=== PATIENT | male | born 1965 | race Caucasian/White ===

== ENCOUNTER 2019-07-22 19:00 | Observation (INO) ==
[2019-07-22] MEDS ORDERED: NS 1,000 ML IV PRN (19:46)
[2019-07-22 19:54] LABS: EOS% 1.4 % (0.0-10.0); HEMOGLOBIN 15.7 g/dL (14.0-18.0); LYMPH% 15.5 % (20.5-51.1); MCH 32.4 PG (27-31); MCHC 36.5 g/dL (33-37); MCV 88.8 FL (81-99); MONO% 6.4 % (1.7-9.3); MPV 10.1 FL (7.4-10.4); NEUT% 76.3 % (42.2-75.2); PLT 124 X1000 (130-400); RBC 4.84 XMIL (4.7-6.1); WBC 8.02 X1000 (4.8-10.8)
[2019-07-22 19:55] LABS: BASO# 0.02 X1000 (0.0-0.2); BASO% 0.2 % (0.0-0.8); EOS# 0.11 X1000 (0.0-0.7); IMM GRAN# 0.02 X1000 (0.0-0.04); IMM GRAN% 0.2 % (0.0-0.5); LYMPH# 1.24 X1000 (1.2-3.4); MONO# 0.51 X1000 (0.11-0.59); NEUT# 6.12 X1000 (1.4-6.5)
[2019-07-22 20:29] LABS: INR 0.95; PROTIME 13.2 Seconds (11.0-16.0)
[2019-07-22 20:30] LABS: PTT 24.9 Seconds (22.3-41.8)
[2019-07-22 20:42] LABS: AGAP 10; ALBUMIN 4.5 g/dL (3.5-5.0); ALKALINE PHOSPHATASE 49 U/L (32-122); BUN 18 mg/dL (8-22); CALCIUM 8.8 mg/dL (8.8-10.2); CHLORIDE 101 mmol/L (98-107); COSMO 281; CREATININE 1.1 mg/dL (0.7-1.2); ESTIMATED GFR > 60; GLUCOSE 120 mg/dL (70-104); GOT 31 U/L (10-34); GPT 37 U/L (10-44); POTASSIUM 4.4 mmol/L (3.5-5.1); SODIUM 139 mmol/L (136-145); TCO2 28 mmol/L (25-35); TOTAL PROTEIN 6.8 g/dL (6.3-8.3)
[2019-07-22 21:16] LABS: BILIRUBIN URINE NEGATIVE (NEGATIVE); BLOOD URINE NEGATIVE (NEGATIVE); GLUCOSE URINE NEGATIVE (NEGATIVE); KETONE URINE TRACE mg/dL (NEGATIVE); NITRITE URINE NEGATIVE (NEGATIVE); PH URINE 6.5; PROTEIN URINE TRACE mg/dL (NEGATIVE); SP GRAVITY URINE 1.015; UROBILINOGEN URINE NORMAL
[2019-07-22 21:17] LABS: CLARITY CLEAR (CLEAR); COLOR YELLOW; LEUKOCYTES URINE TRACE (NEGATIVE)
[2019-07-22 21:24] LABS: URINE BACTERIA 1+ /HFP; URINE CAST NONE SEEN /LPF; URINE CRYSTAL NONE SEEN /HPF; URINE EPITHELIAL CELLS <10 /HPF (<10); URINE RBC <10 /HPF (<10); URINE SOURCE CLEAN CATCH; URINE WBC <10 /HPF (<10); URINE YEAST NONE SEEN /HPF
[2019-07-22 21:26] LABS: UR AMPHETAMINES QUAL NONE DETECTED (NONE DETECT); UR BARBITUATES QUAL NONE DETECTED (NONE DETECT); UR BENZODIAZEPIN QUAL PRESUMPTIVE POSITIVE (NONE DETECT); UR CANNABINOIDS QUAL NONE DETECTED (NONE DETECT); UR COCAINE QUAL NONE DETECTED (NONE DETECT); UR METHADONE QUAL NONE DETECTED (NONE DETECT); UR METHAMPHETAMINE QUAL NONE DETECTED (NONE DETECT); UR OPIATES QUAL NONE DETECTED (NONE DETECT); UR OXYCODONE QUAL NONE DETECTED (NONE DETECT); UR PCP QUAL NONE DETECTED (NONE DETECT); UR PROPOXYPHENE QUAL NONE DETECTED (NONE DETECT); UR TCA QUAL NONE DETECTED (NONE DETECT)
--- NOTE | 2019-07-22 21:26 | Diag Imaging Result Doc PS360 ---
EXAM: CHEST-PORTABLE INDICATION: dizziness TECHNIQUE: One view COMPARISON: 01/10/2018 FINDINGS: Inspiration is suboptimal. The lungs are grossly clear. There is no discrete pleural fluid collection or pneumothorax. The cardiomediastinal silhouette and central vasculature are grossly unremarkable. IMPRESSION: Low lung volumes but no definite acute chest pathology, otherwise. Electronically signed by Juan Dan 07/22/2019 9:24 PM
--- NOTE | 2019-07-22 21:57 | Diag Imaging Result Doc PS360 ---
EXAM: CT HEAD W/O CONTRAST INDICATION: left side numb and dizziness TECHNIQUE: This exam was performed using automated exposure control, adjustment of mA or kV according to patient size, and/or use of iterative reconstruction technique. COMPARISON: 01/10/2018 FINDINGS: There is no definite acute infarct given the limited sensitivity of CT versus MRI. There is no discrete intracranial mass, mass effect, or intracranial hemorrhage. The surrounding soft tissues and bony structures are essentially unremarkable. IMPRESSION: No evidence of acute intracranial pathology. Electronically signed by Juan Dan 07/22/2019 9:54 PM
--- NOTE | 2019-07-22 22:51 | PROVIDER DOCUMENTATION ---
This chart was entered by Jason Rob Scribe, acting as scribe for Margarita Barnes MD. HPI-General Adult - General Chief Complaint: Nausea/Vomiting Stated Complaint: DIZZY, PASSED OUT, VOMITING Time Seen by Provider: 07/22/19 19:33 Source: patient, family Allergies/Adverse Reactions: Patient Allergies Allergy/AdvReac Type Severity Reaction Status Date / Time No Known Allergies Allergy Verified 07/26/16 22:32 Home Medications: Home Medication List Medication Instructions Recorded Confirmed Last Taken Type Acetaminophen with Codeine 1 ea PO Q4H PRN PRN #12 tab 04/17/18 Unknown Rx [Tylenol with Codeine #3] Ibuprofen [Motrin] 800 mg PO Q8H PRN PRN #20 tab 04/17/18 Unknown Rx Omeprazole [Prilosec] 20 mg PO DAILY@0700 #20 cap 04/17/18 Unknown Rx Penicillin V Potassium 500 mg PO BID #20 tab 04/17/18 Unknown Rx - History of Present Illness -Gen Adult Nature of Presenting Problems: 53 yowm presents to the ed with c/o chest pains LUE sharp pain and numbness. pt c/o N/V, dizziness and loss of balance , loss of balance started yesterday. pt states after n/v the chest pains started ,also states pain is a 10 when pain starts. pt states when sitting up pt becomes dizzy. pt c/o slight headache. pt states on exam pt is improving. Pt states hx of DM and blood pressure problems. Location of Pain/Injury: reports: neck (left), chest, upper extremity (Left arm) Pain Radiation: reports: no radiation Quality of Pain: reports: sharp Severity: reports: mild Onset/Duration: reports: this morning Timing: reports: still present, improving Context/Activities at Onset: reports: light activity Modifying Factors: improves with: nothing Associated Symptoms: reports: arm pain (left), back/neck pain (left side of neck), chest pain, dizziness, headaches (slight), nausea, vomiting. denies: cough, fever/chills, shortness of breath, syncope Similar Symptoms Previously?: No Recently seen or treated by another doctor?: No Review of Systems - Adult - REVIEW OF SYSTEMS - ADULT Constitutional: reports: no symptoms reported Eyes: reports: no symptoms reported Ears, Nose, Mouth & Throat: reports: no symptoms reported Cardiovascular: reports: see HPI, chest pain. denies: palpitations, syncope Respiratory: denies: shortness of breath, wheezing Gastrointestinal: reports: nausea, vomiting. denies: abdominal pain, diarrhea Genitourinary: reports: no symptoms reported Musculoskeletal: reports: see HPI, neck pain. denies: back pain, joint swelling Integumentary: reports: no symptoms reported Neurological: reports: see HPI, dizziness/vertigo, headache/migraines (slight), loss of balance, numbness (left arm). denies: seizure, slurred speech, syncope Psychiatric: reports: no symptoms reported Endocrine: reports: no symptoms reported Hematologic/Lymphatic: reports: no symptoms reported Allergic/Immunologic: reports: no symptoms reported All Other Systems: Reviewed and Negative Past History - Adult - PAST MEDICAL HISTORY-ADULT Review of Records: reports: Old Records Reviewed, Nursing Assessment Review, Medications Reviewed, Social history reviewed & non-contributory. Major Childhood Illnesses: reports: denies history Cardiovascular: reports: denies history Respiratory: reports: denies history Gastrointestinal: reports: denies history Obstetrical/Gynecological: reports: denies history Genitourinary: reports: denies history Musculoskeletal: reports: denies history Neurological: reports: denies history Endocrine/Immune: reports: denies history, Diabetes Other Conditions: reports: denies history - PRIOR SURGERIES/PROCEDURES Surgical/Procedure History: reports: reviewed, not pertinent - IMMUNIZATION STATUS Childhood Immunizations: See Nurse Assessment Flu Vaccine: See Nurse Assessment - FAMILY HISTORY Family History: reviewed, not pertinent - SOCIAL HISTORY Smoking: denies Substance Use: denies Living Situation: family Physical Exam-General - PHYSICAL EXAM-ADULT Initial Vital Signs Reviewed: Yes - CONSTITUTIONAL General Appearance: appears well, alert, mild distress. negative: lethargic, slow to respond - EYES Eyes: PERRL/EOMI, pink conjunctivae - HEAD, EARS, NOSE, MOUTH & THROAT HENMT: moist mucous membranes - CARDIOVASCULAR Cardiovascular: bradycardia - SKIN Integumentary: normal color, warm/dry - NEUROLOGIC Neurologic: grossly normal - PSYCHIATRIC Psych/Mental Status: normal mood/affect, normal thought content, normal thought process, oriented x 3 Progress - PLAN OF CARE/RESULTS Progress/Plan/Lab Results: Vital Signs - 8 hr 07/22/19 19:51 Temperature 97.8 F Pulse Rate 50 L Respiratory Rate 22 Blood Pressure 109/69 O2 Sat by Pulse Oximetry 96 Laboratory Results - last 24 hr 07/22/19 19:44 WBC 8.02 RBC 4.84 Hgb 15.7 Hct 43.0 MCV 88.8 MCH 32.4 H MCHC 36.5 RDW Std Deviation 12.0 Plt Count 124 L MPV 10.1 Immature Gran % (Auto) 0.2 Neut % (Auto) 76.3 H Lymph % (Auto) 15.5 L Stanly % (Auto) 6.4 Eos % (Auto) 1.4 Baso % (Auto) 0.2 Immature Gran # (Auto) 0.02 Neut # (Auto) 6.12 Lymph # (Auto) 1.24 Stanly # (Auto) 0.51 Eos # (Auto) 0.11 Baso # (Auto) 0.02 Orders Category Date Time Status Cardiac Monitoring DIRECTED Care 07/22/19 19:47 Active Finger Stick Blood Sugar (ED) DIRECTED Care 07/22/19 19:47 Active Misc. NRSG Communication Order DIRECTED Care 07/22/19 19:47 Active Saline Loc NOW Care 07/22/19 19:47 Active CHEST-PORTABLE [RAD] Stat Exams 07/22/19 19:47 Ordered CBC WITH ELECTRONIC DIFF [HEME] Stat Lab 07/22/19 19:44 Completed COMPREHENSIVE METABOLIC PANEL [CHEM] Stat Lab 07/22/19 19:47 Uncollected PROTIME WITH INR [COAG] Stat Lab 07/22/19 19:47 Uncollected PTT [COAG] Stat Lab 07/22/19 19:47 Uncollected TROPONIN T Stat Lab 07/22/19 19:[address] W/POSS RFLX CULT [URINALYSIS] Stat Lab 07/22/19 19:46 Uncollected URINE DRUG SCREEN PL Stat Lab 07/22/19 19:47 Uncollected 0.9% Sodium Chloride Inj [Ns] 1,000 ml Med 07/22/19 19:46 Active IV 999 mls/hr Result Diagrams: 07/22/19 19:44 07/22/19 19:44 - REASSESSMENT Reassessment #1 Time Reassessed: 22:36 (pt resting in bed with family in room ) Status: improving - EKG 1 Time of EKG reading by physician:: 19:36 EKG Read and Signed by:: Margarita Barnes EKG Interpretation (*Must complete 3 of following elements*): Abnormal Rate: 47 Rhythm: Sinus bradycardia Hyrum: normal QRS: normal CT Interval: normal ST Wave: normal Comments: cannot rule out Anterior infract, age undeterminded - XRAY 1 XRAY Study: Chest Impression: See EMR Report (EXAM: CHEST-PORTABLE INDICATION: dizziness TECHNIQUE: One view COMPARISON: 01/10/2018 FINDINGS: Inspiration is suboptimal. The lungs are grossly clear. There is no discrete pleural fluid collection or pneumothorax. The cardiomediastinal silhouette and central vasculature are grossly unremarkable. IMPRESSION: Low lung volumes but no definite acute chest pathology, otherwise. Electronically signed by Juan Dan 07/22/2019 9:24 PM 07/22/192123 Interpreting Physician: Juan Dan MD Dictated Date/Time: 07/22/192123 cc: Margarita Barnes MD; Darinel Infante) - CT/MRI 1 CT Study: Head Impression: See EMR Report (EXAM: CT HEAD W/O CONTRAST INDICATION: left side numb and dizziness TECHNIQUE: This exam was performed using automated exposure control, adjustment of mA or kV according to patient size, and/or use of iterative reconstruction technique. COMPARISON: 01/10/2018 FINDINGS: There is no definite acute infarct given the limited sensitivity of CT versus MRI. There is no discrete intracranial mass, mass effect, or intracranial hemorrhage. The surrounding soft tissues and bony structures are essentially unremarkable. IMPRESSION: No evidence of acute intracranial pathology. Electronically si gned by Juan Dan 07/22/2019 9:54 PM 07/22/192153 Interpreting Physician: Juan Dan MD Dictated Date/Time: 07/22/192153 cc: Margarita Barnes MD; Darinel Infante) - CONSULTS/PCP/HOSPITALIST Notification #1 *Consult/PCP/Hospitalist*: Phone call with hospitalists Time Discussed: 22:42 Consult Disposition: Admit Departure - Departure Date of Disposition Decision: 07/22/19 Time of Disposition Decision: 22:51 DIAGNOSIS: Syncope, Chest pain Disposition: ADMITTED INPATIENT 09 Certified Medical Emergency: Emergent Condition: Good Referrals and Follow-Ups: Darinel Infante [Primary Care Provider] - - Critical Care Note This patient required my direct & personal management of CC.: No Attestation - Physician/ UCHE Attestation Patient care was provided by Advanced Practice Provider:: No The physician spent face to face time with patient:: Yes Advanced Practice Provider documentation review:: Supervising physician onsite and consulted in the evaluation and care of this patient. The physician did have a face to face encounter with the patient. This chart was documented by the indicated scribe, (Jason Rob, Juan Jose) and accurately reflects the services I performed and decisions made by me, Chanell Barnes MD, as attested by the provider's signature.
[2019-07-22] MEDS ORDERED: MORPHINE IV PRN (22:52)
[2019-07-22] MEDS ORDERED: NS 1,000 ML IV ONE (22:52)
[2019-07-22] MEDS ORDERED: ZOFRAN IV PRN (22:52)
[2019-07-23] MEDS ORDERED: NS 1,000 ML IV SCH ×2 (00:15→16:30)
[2019-07-23] MEDS: ZOFRAN IV PRN ×2 (00:51→14:27)
[2019-07-23] MEDS ORDERED: PNEUMOVAX 23 IM ONE (01:13)
[2019-07-23] MEDS: MORPHINE IV PRN ×3 (04:16→14:27)
[2019-07-23] MEDS ORDERED: ANTIVERT PO PRN (08:38)
--- NOTE | 2019-07-23 10:09 | Extremity Venous Study ---
EXAM: Carotid Ultrasound - 07/23/2019 HISTORY: vertigo TECHNIQUE: Carotid flow studies COMPARISON: None. FINDINGS: There is no substantial atherosclerotic plaquing identified in the right carotid system. Maximum systolic velocity in the right internal carotid is 77 cm/s, and maximum diastolic velocity is 30 cm/s. The right internal to common carotid systolic velocity ratio is 0.68. The flow velocities and ratio are consistent with 0-39% stenosis at the right internal carotid. The right vertebral demonstrates antegrade flow. There is no substantial atherosclerotic plaquing identified in the left carotid system. Maximum systolic velocity in the left internal carotid is 46 cm/s, and maximum diastolic velocity is 23 cm/s. The left internal to common carotid systolic velocity ratio is 0.50. The flow velocities and ratio are consistent with 0-39% stenosis at the left internal carotid. The left vertebral demonstrates antegrade flow. There is an apparent 1.6 cm solid nodule, with blood flow signal on Doppler image, noted the right thyroid lobe. IMPRESSION: 0-39% stenosis at right internal carotid. 0-39% stenosis at left internal carotid. Apparent 1.6 cm solid nodule noted at right thyroid. Correlation with dedicated thyroid ultrasound is recommended. Electronically signed by Amador El 07/23/2019 10:07 AM
--- NOTE | 2019-07-23 11:25 | Diag Imaging Result Doc PS360 ---
EXAM: MRI BRAIN W/WO CONTRAST - 07/23/2019 HISTORY: vertigo/eval acoustic nerve TECHNIQUE: MRI brain without and with contrast. Images are obtained prior to and following gadolinium administration. In addition to the standard images, focal images of the internal auditory canals are obtained. COMPARISON: 07/22/2019 CT head without contrast FINDINGS: There is no evidence of intracranial hemorrhage, mass effect, midline shift, or hydrocephalus. The diffusion weighted images show no areas of restricted diffusion (no evidence of acute infarct). There are no substantial signal abnormalities identified. There is no abnormal enhancement identified. There is no evidence of mass or abnormal enhancement in the internal auditory canal regions. There is mild cerebellar tonsillar ectopia which is likely within the range of normal variation. IMPRESSION: No visible substantial abnormality. No evidence of infarct. No evidence of acoustic neuroma. Electronically signed by Amador El 07/23/2019 11:23 AM
[2019-07-23 16:39] VITALS: BP 120/69
[2019-07-23] MEDS ORDERED: HUMALOG (PARKWAY) SUBQ SCH (21:00)
--- NOTE | 2019-07-23 22:39 | HISTORY AND PHYSICAL ---
CHIEF COMPLAINT: Nausea and vomiting. HISTORY OF PRESENT ILLNESS: The patient is a 53-year-old male who presented to the emergency department complaining of chest pain and numbness. He states he has had nausea, vomiting and dizziness, lost his balance yesterday. He states the pain initially was 10/10, but is much improved currently. He states any time he sits up, moves or rolls over he gets dizzy. He has had a headache. Notes he has pain in both arms as well. ALLERGIES: No known drug allergies. MEDICATIONS: He is on no current medications. PAST MEDICAL HISTORY: Hypertension and diabetes. REVIEW OF SYSTEMS: As noted above. Positive for back and neck pain, but this is chronic. He is also having left arm and right arm pain. He does have some dizziness, headache, nausea and vomiting. Denies any diarrhea, dysuria or frequency. Denies constipation, melena or hematochezia. Denies any focalized weakness. Denies any blurry vision or change in vision. FAMILY HISTORY: Noncontributory. SOCIAL HISTORY: He is . Does not smoke or drink. PHYSICAL EXAMINATION: VITAL SIGNS: Reviewed. Temperature 97.8 degrees, pulse 50, respiratory 20, BP 109/69, saturation 96% on room air. GENERAL: The patient is awake, alert, currently in no respiratory distress. HEENT: Normocephalic. NECK: Supple. CARDIOVASCULAR: Regular rate. CHEST: Clear. ABDOMEN: Soft. EXTREMITIES: Moves all extremities. ASSESSMENT: 1. Vertigo. 2. History of diabetes with mild hyperglycemia. 3. Cervical radiculopathy. PLAN: We are going to admit the patient to the hospital, treat him for vertigo, as that appears to be the major issue that he is having. We are going to check an MRI and carotids, and hopefully discharge home if negative. cc: Denis Valenzuela MD
--- NOTE | 2019-07-24 04:16 | DISCHARGE SUMMARY ---
ADMISSION DATE: 07/22/2019 DISCHARGE DATE: 07/23/2019 The patient was admitted diagnosed with vertigo. Thankfully, his symptoms have resolved. MRI and CT of head were negative. Carotid ultrasound was negative. He is feeling much better. He is having some cervical neck strain, but this is chronic. As his main symptoms of vertigo have resolved, going to discharge him home. No changes were made in his home medications. He will continue to follow with his primary care. cc: Denis Valenzuela MD
== END 2019-07-23 19:08 | disposition home or self-care (01) ==
LOC: P.ED 19:00 → P.MEDSURG 19:00
PROVIDERS: ADMIT Family Medicine; ATTEND Family Medicine